=== PATIENT | male | born 1995 | race Caucasian/White ===

== ENCOUNTER 2022-07-28 14:22 | Outpatient (CLI) | payer BC, SELFPAY ==
--- NOTE | 2022-07-28 14:39 | ECG_ITS ---
Measurements Intervals Ralls Rate: 66 P: 73 WY: 132 QRS: 38 QRSD: 100 T: 38 QT: 367 QTc: 387 Interpretive Statements SINUS RHYTHM WITH FREQUENT VENTRICULAR PREMATURE COMPLEXES IN VENTRICULAR TRIGEMINY ABNORMAL ECG NO PREVIOUS ECG AVAILABLE FOR COMPARISON Electronically Signed On 07-28-2022 17:13:15 NUTRITION INTERNSHIP by Elijah Woodruff M.D.
== END 2022-07-28 14:23 | disposition home or self-care (01) ==
PROVIDERS: PCP Nurse Practitioner Family; Visit Provider Nurse Practitioner Family
DX: I49.9 Cardiac arrhythmia, unspecified (principal); R94.31 Abnormal electrocardiogram [ECG] [EKG]
CPT/HCPCS: 93005